=== PATIENT | male | born 1965 | race Caucasian/White ===

== ENCOUNTER 2023-10-04 08:38 | Inpatient (IN) | payer OTHER ==
[~2023-10-04] VITALS: Ht 188 cm; Wt 104.6 kg
[2023-10-04 09:31] LABS: Hemoglobin 8.8 g/dL (13.5-17.5); Mean Corpuscular HGB 26.6 pg (26.0-34.0); Mean Corpuscular HGB Conc 31.4 g/dL (31.5-36.5); Mean Corpuscular Volume 85 fL (80-100); Mean Platelet Volume 9.3 fL (9.1-12.4); NRBC ABSOLUTE 0.57 K/mm3 (0.00-0.02); NRBC Auto 3.8 /100 WBC (0.0-0.2); Platelet Count 232 K/mm3 (150-400); RDW Coefficient Variation 21.4 % (11.7-14.2); RDW Standard Deviation 65.5 fL (35.1-46.3); Red Blood Cell Count 3.31 M/mm3 (4.30-5.90); White Blood Cell Count 15.11 K/mm3 (4.00-11.30)
[2023-10-04 09:57] LABS: Albumin/Globulin Ratio 0.6 (0.8-1.8); Bilirubin, Total 0.7 mg/dL (0.1-1.0); Bun/Creatinine Ratio 18.6 (12.0-20.0); Calcium, Blood 8.6 mg/dL (8.5-10.1); Creatinine, Blood 0.92 mg/dL (0.60-1.20); Potassium, Blood 4.2 mmol/L (3.5-5.5)
[2023-10-04] MEDS ORDERED: BENAZEPRIL HCL40 M4 PO (10:40)
[2023-10-04] MEDS ORDERED: NEBIVOLOL HCL5 MG PO (10:40)
[2023-10-04] MEDS ORDERED: AMLODIPINE BESY10 MG PO (10:40)
[2023-10-04] MEDS ORDERED: ATOR10 PO (10:41)
[2023-10-04 10:53] LABS: BASOPHILS PERCENT MAN 2 % (0-2); EOSINOPHILS ABSOLUTE MAN 0.45 K/mm3 (0.00-0.68); EOSINOPHILS PERCENT MAN 3 % (0-6); LYMPHOCYTES PERCENT MAN 8 % (21-46); MONOCYTES ABSOLUTE MAN 0.75 K/mm3 (0.16-1.47); MONOCYTES PERCENT MAN 5 % (4-13); NEUTROPHILS ABSOLUTE MAN 12.08 K/mm3 (1.96-9.15); PLASMA CELLS PERCENT MAN 2 % (0-0); SEG NEUTROPHILS PERCENT MAN 80 % (41-73); TOTAL CELLS COUNTED 100
[2023-10-04 11:04] LABS: BASOPHILS ABSOLUTE AUTO 0.08 K/mm3 (0.00-0.23); BASOPHILS PERCENT AUTO 1 % (0-2); EOSINOPHILS ABSOLUTE AUTO 0.28 K/mm3 (0.00-0.68); EOSINOPHILS PERCENT AUTO 2 % (0-6)
[2023-10-04 11:12] LABS: IMMATURE GRAN ABSOLUTE AUTO 0.31 K/mm3 (0.00-0.10); IMMATURE GRAN PERCENT AUTO 2 % (0-1); LYMPHOCYTES ABSOLUTE AUTO 2.19 K/mm3 (0.84-5.20); LYMPHOCYTES PERCENT AUTO 15 % (21-46); MONOCYTES ABSOLUTE AUTO 1.34 K/mm3 (0.16-1.47); MONOCYTES PERCENT AUTO 9 % (4-13); NEUTROPHILS ABSOLUTE AUTO 10.87 K/mm3 (1.96-9.15); NEUTROPHILS PERCENT AUTO 72 % (41-73)
[2023-10-04 11:45] LABS: IMMATURE RETIC FRACTION 35.1 % (2.3-16.0); RETICULOCYTE ABSOLUTE 0.0733 M/mm3 (0.0200-0.1100); RETICULOCYTE COUNT PERCENT 2.2 % (0.50-2.50)
[2023-10-04 13:29] LABS: Percent Saturation 8.8 % (20.0-50.0)
[2023-10-04 17:52] VITALS: BP 159/91
--- NOTE | 2023-10-04 18:28 | NUR ---
ADMISSION NOTE: PATIENT ARRIVES TO ROOM AT 1745 FROM ED FOR DX'S OF NEW ONSET OF CHF. PATIENT A/OX4, ANSWER TO QUESTIONS APPROPRIATLEY, CALM, PLEASANT AND COOPERATIVE c CARE. PATIENT ORIENTATED TO ROOM AND CALL SYSTEM. MEDRIC, ADMISSION AND SKIN ASESSMENT c 2 RN VERIFIED COMPLETED. PATIENT DENIES CP/PRESSURE, SOB AND DIZZINESS. PATIENT ON TELE SR HR AT 95 BPM. PATIENT ON 2L O2 VIA NC, BASELINE RA. PATIENT ON REGULAR DIET. PATIENT HAS ECHO ORDER, AWAITING TO GET THE PROCEDURE DONE. PATIENT IS INDEPENDENT IN ROOM. PATIENT RECEIVED PO FERROUS SULFATE PER ORDER. PIV TO L WRIST SL. VITAL SIGNS REVIEWED. CALL LIGHT IN REACH.
[2023-10-04 20:09] VITALS: BP 120/64
[2023-10-05 02:42] VITALS: BP 129/86
--- NOTE | 2023-10-05 04:26 | NUR ---
SHIFT SUMMARY PT A&O X4, PLEASANT AND COOPERATIVE WITH CARE. CURRENTLY ON 2L VIA NC, SATS ABOVE 94%. PT CONTINENT OF BLADDER/BOWEL. TELEMETRY: SR W/PVC @ 73. STRICT I&O'S MAINTAINED. PT AWAITING ECHO PROCEDURE. DAUGHTER WHO IS AN ER NURSE CALLED TO CHECK ON PT. VITALS REVEIWED. NO ACUTE CHANGES THIS SHIFT. BED KEPT IN LOWEST POSITION IWTH CALL LIGHT WITHIN REACH. PT CALLS APPROPRAITELY FOR NEEDS. WILL CONTINUE TO MONITOR.
[2023-10-05 05:30] LABS: Hematocrit 27.7 % (37.0-53.0); Hemoglobin 8.6 g/dL (13.5-17.5); Mean Corpuscular HGB 26.6 pg (26.0-34.0); Mean Corpuscular Volume 86 fL (80-100); Mean Platelet Volume 9.8 fL (9.1-12.4); NRBC ABSOLUTE 0.53 K/mm3 (0.00-0.02); NRBC Auto 3.5 /100 WBC (0.0-0.2); Platelet Count 234 K/mm3 (150-400); RDW Coefficient Variation 21.5 % (11.7-14.2); Red Blood Cell Count 3.23 M/mm3 (4.30-5.90); White Blood Cell Count 15.15 K/mm3 (4.00-11.30)
[2023-10-05 06:10] LABS: Bun/Creatinine Ratio 17.5 (12.0-20.0); Calcium, Blood 8.4 mg/dL (8.5-10.1); Creatinine, Blood 1.03 mg/dL (0.60-1.20); Magnesium, Blood 2.4 mg/dL (1.6-2.4); Potassium, Blood 3.6 mmol/L (3.5-5.5)
[2023-10-05 07:26] VITALS: BP 130/74
[2023-10-05 12:06] LABS: Adenovirus Not Detected (NOT DETECT); Coronavirus 229E Not Detected (NOT DETECT); Coronavirus HKU1 Not Detected (NOT DETECT); Coronavirus NL63 Not Detected (NOT DETECT); Coronavirus OC43 Not Detected (NOT DETECT); SARS-Cov-2 (COVID-19), BioFire Not Detected (NOT DETECT)
[2023-10-05 12:07] LABS: Bordetella pertussis Not Detected (NOT DETECT); Chlamydophila pneumoniae Not Detected (NOT DETECT); Human Metapneumovirus Not Detected (NOT DETECT); Human Rhinovirus/Enterovirus Detected (NOT DETECT); Influenza A/2009-H1 Not Detected (NOT DETECT); Influenza A/H1 Not Detected (NOT DETECT); Influenza A/H3 Not Detected (NOT DETECT); Influenza B Not Detected (NOT DETECT); Mycoplasma pneumoniae Not Detected (NOT DETECT); Parainfluenza Virus 1 Not Detected (NOT DETECT); Parainfluenza Virus 2 Not Detected (NOT DETECT); Parainfluenza Virus 3 Not Detected (NOT DETECT); Parainfluenza Virus 4 Not Detected (NOT DETECT); Respiratory Syncytial Virus Not Detected (NOT DETECT)
[2023-10-05 14:42] VITALS: BP 128/76
--- NOTE | 2023-10-05 16:58 | NUR ---
SHIFT SUMMARY: PATIENT A/OX4, CALM, PLEASANT AND COOPERATIVE c CARE. PATIENT DENIES CP/PRESSURE, N/V, AND DIZZINESS. PATIENT ON TELE, SR HR IN THE 80'S BPM. PATIENT HAD ECHO DONE TODAY c RESULT; EF 55-60%. PATIENT REPORTS SMALL AMOUNT PRODUCTIVE COUGH, MEDICATED c PRN FOR COUGH c MINIMAL EFFECT. PATIENT PLACED ON DROPLET PRECAUTION D/T PCR RESULT POSITIVE FOR ENTERO/RHINO VIRUS. PATIENT RECEIVED PO/IV ABX AND SCHEDULED MEDS PER EMAR. PATIENT HAD SHOWER AND LINEN CHANGED TODAY. PATIENT IS CONTINENCE OF BLADDER AND HAS BEEN AMBULATING TO BATHROOM T/O SHIFT. PATIENT ON IV LASIX c 1,650 MLS TOTAL URINE OUTPUT THIS SHIFT. PATIENT PLACED ON RA AT AROUND 1000 c SPO2 RANGES 90-94% T/O SHIFT. PATIENT HAS NO COMPLAINTS OR DENIES NEW CONCERNED THIS SHIFT. PIV TO L WRIST SALINE LOCKED. CALL LIGHT IN REACH.
[2023-10-05 20:12] VITALS: BP 117/73
[2023-10-06 03:43] VITALS: BP 123/75
--- NOTE | 2023-10-06 04:50 | NUR ---
SHIFT SUMMARY PT A&O X4, CALM AND COOPERATIVE WITH CARE. PT DENIES ANY CP OR PRESSURE. TELEMETRY: SR @ 88. 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 PT CURRENTLY HAS A COUGH. PT DECLINED TO TAKE ANY PRN COUGH MEDICATIONS. CURRENTLY ON RA WITH SATS ABOVE 90%. PT IS CONTINENT OF BLADDER/BOWEL AND HAS BEEN AMBULATING T/O THE SHIFT. NO ACUTE CHANGES OVERNIGHT. TT DAUGHTER JOSEY OVER THE PHONE WHO IS AN ER NURSE IN [place]. DAUGHTER WAS DRIVING DOWN LAST NIGHT AND WILL BE IN TO SEE THE PT TODAY. PT CALLS APPROPRIATLY FOR NEEDS. WILL CONTINUE TO MONITOR. CALL LIGHT WITHIN REACH.
[2023-10-06 05:18] LABS: BASOPHILS ABSOLUTE AUTO 0.07 K/mm3 (0.00-0.23); BASOPHILS PERCENT AUTO 1 % (0-2); EOSINOPHILS ABSOLUTE AUTO 0.48 K/mm3 (0.00-0.68); EOSINOPHILS PERCENT AUTO 4 % (0-6); Hematocrit 28.1 % (37.0-53.0); Hemoglobin 8.8 g/dL (13.5-17.5); IMMATURE GRAN ABSOLUTE AUTO 0.25 K/mm3 (0.00-0.10); IMMATURE GRAN PERCENT AUTO 2 % (0-1); LYMPHOCYTES ABSOLUTE AUTO 2.72 K/mm3 (0.84-5.20); LYMPHOCYTES PERCENT AUTO 20 % (21-46); MONOCYTES ABSOLUTE AUTO 3.44 K/mm3 (0.16-1.47); MONOCYTES PERCENT AUTO 25 % (4-13); Mean Corpuscular HGB 26.7 pg (26.0-34.0); Mean Corpuscular HGB Conc 31.3 g/dL (31.5-36.5); Mean Corpuscular Volume 85 fL (80-100); Mean Platelet Volume 9.6 fL (9.1-12.4); NEUTROPHILS ABSOLUTE AUTO 6.66 K/mm3 (1.96-9.15); NEUTROPHILS PERCENT AUTO 49 % (41-73); NRBC ABSOLUTE 0.65 K/mm3 (0.00-0.02); NRBC Auto 4.8 /100 WBC (0.0-0.2); Platelet Count 246 K/mm3 (150-400); RDW Coefficient Variation 21.3 % (11.7-14.2); RDW Standard Deviation 65.6 fL (35.1-46.3); Red Blood Cell Count 3.29 M/mm3 (4.30-5.90); White Blood Cell Count 13.62 K/mm3 (4.00-11.30)
[2023-10-06 05:35] LABS: Bun/Creatinine Ratio 20.2 (12.0-20.0); Calcium, Blood 8.2 mg/dL (8.5-10.1); Creatinine, Blood 0.94 mg/dL (0.60-1.20); Potassium, Blood 3.2 mmol/L (3.5-5.5)
[2023-10-06 07:32] VITALS: BP 123/93
[2023-10-06 11:05] VITALS: BP 112/66
--- NOTE | 2023-10-06 11:23 | NUR ---
NOTE: RECEIVED A CALL FROM [facility] [employer] [facility] AT AROUND 1104. PER NURIS, PATIENT HAD 12 BEATS RUN OF VTACH. THIS RN ASSESS PATIENT; PATIENT LAYING IN BED CONVERSING c FAMILY AT BEDSIDE, DENIES CP/PRESSURE, SOB, DIZZINESS, DIAPHORESIS, VITALS TAKEN; BP 112/66, HR OF 78 BPM, O2 94% RA. NOTIFIED DR. PRITCHARD c THIS EVENTS. PER DR. PRITCHARD SHE WILL ORDER LAB DRAWM FOR K, MAG, CONTINUE TO MONITOR PATIENT AND TO GIVE HER A CALL BACK c THE LAB RESULT.
[2023-10-06 12:07] LABS: Magnesium, Blood 2.3 mg/dL (1.6-2.4); Potassium, Blood 3.8 mmol/L (3.5-5.5)
[2023-10-06 15:39] VITALS: BP 124/71
--- NOTE | 2023-10-06 17:24 | NUR ---
SHIFT SUMMARY: PATIENT A/OX4, PLEASANT AND COOPERATIVE c CARE. PATIENT USES CALL LIGHT APPROPRIATELY AND ABLE TO MAKE NEEDS KNOWN. PATIENT HAD OT EPISODE OF 12 BEATS RUN OF VTACH THIS AM, DR. PRITCHARD IS AWARE THIS ISSUE. PATIENT HAS NO EVENTS ON TELE AFTER THE EPISODE AND HAS BEEN CONSISTENT SR c OCCASIONAL PVC, HR IN THE 70'S BPM THIS SHIFT. PATIENT RECEIVED IV LASIX, CONTINENCE OF BLADDER c 2,150 MLS TOTAL URINE OUTPUT AND 1 UNMEASURED VOID THIS SHIFT. PATIENT RECEIVED IV ABX AND SCHEDULED MEDS PER EMAR. PATIENT STILL ON RA, USES FLUTTER VALVE FOR BREATHING EXCERCISE T/O THE DAY. PATIENT REPORTS IT REALLY HELPS AND ABLE TO COUGH SOME PLEGHM UP. PATIENT SCHEDULED TO HAVE SLEEP OX STUDY TONIGHT PER ORDER. PATIENT HAD SHOWER AND LINEN CHANGED TODAY. PATIENT FAMILY AT BEDSIDE OFF/ON T/O THE DAY, UPDATE GIVEN TO FAMILY REGARDING PATIENT CONDITION AND PLAN OF CARE. PATIENT AND FAMILY VERBALIZED UNDERSTANDING AND NO FURTHER QUESTIONS AT THIS TIME. VITAL SIGNS REVIEWED. PIV TO L WRIST SALINE LOCKED. CALL LIGHT IN REACH.
[2023-10-06 19:46] LABS: HAPTOGLOBIN 109 mg/dL (30-200)
[2023-10-06 20:14] VITALS: BP 116/67
[2023-10-07 05:20] VITALS: BP 130/67
[2023-10-07 06:34] LABS: Hematocrit 31.4 % (37.0-53.0); Hemoglobin 9.8 g/dL (13.5-17.5); Mean Corpuscular HGB 26.5 pg (26.0-34.0); Mean Corpuscular HGB Conc 31.2 g/dL (31.5-36.5); Mean Corpuscular Volume 85 fL (80-100); NRBC ABSOLUTE 0.68 K/mm3 (0.00-0.02); NRBC Auto 5.1 /100 WBC (0.0-0.2); Platelet Count 257 K/mm3 (150-400); RDW Coefficient Variation 21.2 % (11.7-14.2); RDW Standard Deviation 65.3 fL (35.1-46.3); White Blood Cell Count 13.36 K/mm3 (4.00-11.30)
[2023-10-07 06:57] LABS: Bun/Creatinine Ratio 16.5 (12.0-20.0); Calcium, Blood 8.5 mg/dL (8.5-10.1); Creatinine, Blood 0.97 mg/dL (0.60-1.20); Potassium, Blood 3.4 mmol/L (3.5-5.5)
[2023-10-07 07:47] LABS: BASOPHILS ABSOLUTE MAN 0.13 K/mm3 (0.00-0.23); BASOPHILS PERCENT MAN 1 % (0-2); EOSINOPHILS PERCENT MAN 3 % (0-6); LYMPHOCYTES % ATYPICAL MANUAL 5 % (0-0); LYMPHOCYTES ABSOLUTE MAN 2.53 K/mm3 (0.84-5.20); LYMPHOCYTES PERCENT MAN 14 % (21-46); MONOCYTES ABSOLUTE MAN 1.87 K/mm3 (0.16-1.47); MONOCYTES PERCENT MAN 14 % (4-13); NEUTROPHILS ABSOLUTE MAN 6.81 K/mm3 (1.96-9.15); PLASMA CELLS PERCENT MAN 12 % (0-0); SEG NEUTROPHILS PERCENT MAN 51 % (41-73); TOTAL CELLS COUNTED 100
--- NOTE | 2023-10-07 07:47 | NUR ---
SHIFT SUMMARY PT A&O X4, CALM AND COOPERATIVE WITH CARE. TELEMETRY: ST AT 113. PT DENIES ANY CHEST PAIN OR PRESSURE. PT DOES HAVE A COUGH AND HAS SOME BACK PAIN DUE TO THAT. PT REFUSED PRN COUGH MEDS OR PAIN MEDS. ELEVATED HOB. PT HAD A SLEEP STUDY LAST NIGHT. PT IS CURRENTLY ON REG DIET AND MAY BENEFIT FROM CARDIAC DIET. PASSED ON TO DAY SHIFT. BED IN LOWEST POSITION WITH CALL LIGHT WITHIN REACH.
[2023-10-07 08:23] VITALS: BP 129/70
[2023-10-07] MEDS ORDERED: FERSU300 PO (15:14)
[2023-10-07] MEDS ORDERED: POTCHL20ER PO (15:15)
[2023-10-07] MEDS ORDERED: GUAI600T33 PO (15:15)
[2023-10-07] MEDS ORDERED: PRED20 PO (15:16)
[2023-10-07] MEDS ORDERED: FURO40 PO (15:16)
[2023-10-07] MEDS ORDERED: AMOCLA500 PO (15:44)
--- NOTE | 2023-10-07 17:28 | NUR ---
PATIENT DISCHARGED FROM THE UNIT. IV REMOVED. MEDICATIONS FAXED TO [facility]. PATIENT LEFT VIA WHEEL CHAIR WITH FAMILY
== END 2023-10-07 18:28 | disposition home or self-care (01) | DRG 291 ==
LOC: ER 08:38 → MEDS 08:39 → ENPENDDIS 10-07 14:14 → MEDS 10-07 18:28
PROVIDERS: Emergency Medicine; Family Medicine; Nurse Practitioner Acute Care; Student in an Organized Health Care Education/Training Program; ADMIT Internal Medicine
PROC: 5A09357 Assistance with Respiratory Ventilation, Less than 24 Consecutive Hours, Continuous Positive Airway Pressure (ICD-10-PCS; principal; 2023-10-06)
DX: I11.0 Hypertensive heart disease with heart failure (principal); I50.33 Acute on chronic diastolic (congestive) heart failure; J96.01 Acute respiratory failure with hypoxia; J12.89 Other viral pneumonia; I47.20 Ventricular tachycardia, unspecified; Q23.1 Congenital insufficiency of aortic valve; J06.9 Acute upper respiratory infection, unspecified; B97.10 Unspecified enterovirus as the cause of diseases classified elsewhere; B97.89 Other viral agents as the cause of diseases classified elsewhere; D50.9 Iron deficiency anemia, unspecified; D63.8 Anemia in other chronic diseases classified elsewhere; E78.5 Hyperlipidemia, unspecified; G47.33 Obstructive sleep apnea (adult) (pediatric); I27.20 Pulmonary hypertension, unspecified; F17.220 Nicotine dependence, chewing tobacco, uncomplicated; E87.6 Hypokalemia; Z86.16 Personal history of COVID-19; Z11.52 Encounter for screening for COVID-19
CPT/HCPCS: 0202U; 36415; 71046; 71260; 74018; 80048; 80053; 82607; 82728; 82746; 83010; 83540; 83550; 83615; 83735; 83880; 84132; 84145; 84484; 85025; 85027; 85045; 86140; 93005; 93010; 93306; 94640; 94664; 94760; 96372; 96374-59; 96375; 96376; 99285-25; A9270; G0378; J0696; J1650; J1940; J7050; J7512; Q9967

== ENCOUNTER → 2023-10-31 | Outpatient (CLI) | payer OTHER ==
[~2023-10-31] MED LIST: AMLODIPINE BESY10 MG PO; AMOCLA500 PO; ATOR10 PO; BENAZEPRIL HCL40 M4 PO; FERSU300 PO; FURO40 PO; GUAI600T33 PO; NEBIVOLOL HCL5 MG PO; POTCHL20ER PO; PRED20 PO
[2023-10-31 10:19] LABS: BASOPHILS ABSOLUTE AUTO 0.06 K/mm3 (0.00-0.23); BASOPHILS PERCENT AUTO 1 % (0-2); EOSINOPHILS ABSOLUTE AUTO 0.33 K/mm3 (0.00-0.68); EOSINOPHILS PERCENT AUTO 4 % (0-6); Hemoglobin 8.7 g/dL (13.5-17.5); Mean Corpuscular HGB 25.5 pg (26.0-34.0); Mean Corpuscular Volume 85 fL (80-100); Mean Platelet Volume 9.1 fL (9.1-12.4); NRBC ABSOLUTE 0.33 K/mm3 (0.00-0.02); NRBC Auto 3.8 /100 WBC (0.0-0.2); Platelet Count 222 K/mm3 (150-400); RDW Coefficient Variation 22.7 % (11.7-14.2); RDW Standard Deviation 69.5 fL (35.1-46.3); Red Blood Cell Count 3.41 M/mm3 (4.30-5.90); White Blood Cell Count 8.75 K/mm3 (4.00-11.30)
[2023-10-31 10:21] LABS: IMMATURE GRAN ABSOLUTE AUTO 0.09 K/mm3 (0.00-0.10); IMMATURE GRAN PERCENT AUTO 1 % (0-1); LYMPHOCYTES ABSOLUTE AUTO 2.57 K/mm3 (0.84-5.20); LYMPHOCYTES PERCENT AUTO 29 % (21-46); MONOCYTES ABSOLUTE AUTO 0.99 K/mm3 (0.16-1.47); MONOCYTES PERCENT AUTO 11 % (4-13); NEUTROPHILS ABSOLUTE AUTO 4.71 K/mm3 (1.96-9.15); NEUTROPHILS PERCENT AUTO 54 % (41-73)
[2023-10-31 10:23] LABS: Bun/Creatinine Ratio 10.2 (12.0-20.0); Calcium, Blood 8.6 mg/dL (8.5-10.1); Creatinine, Blood 1.18 mg/dL (0.60-1.20); Potassium, Blood 3.9 mmol/L (3.5-5.5)
[2023-10-31 10:56] LABS: BAND PERCENT MAN 3 % (0-8); BASOPHILS ABSOLUTE MAN 0.08 K/mm3 (0.00-0.23); BASOPHILS PERCENT MAN 1 % (0-2); EOSINOPHILS ABSOLUTE MAN 0.78 K/mm3 (0.00-0.68); EOSINOPHILS PERCENT MAN 9 % (0-6); LYMPHOCYTES ABSOLUTE MAN 1.75 K/mm3 (0.84-5.20); LYMPHOCYTES PERCENT MAN 20 % (21-46); MONOCYTES ABSOLUTE MAN 1.05 K/mm3 (0.16-1.47); MONOCYTES PERCENT MAN 12 % (4-13); SEG NEUTROPHILS PERCENT MAN 53 % (41-73)
[2023-10-31 10:57] LABS: PLASMA CELL ABSOLUTE MAN 0.17 K/mm3 (0.00-0.00); PLASMA CELLS PERCENT MAN 2 % (0-0)
== END | disposition home or self-care (01) ==
LOC: LAB 10:14 → LAB SHORT 10:14
PROVIDERS: Physician Assistant Surgical
DX: R06.00 Dyspnea, unspecified (principal)
CPT/HCPCS: 80048; 83880; 85025

== ENCOUNTER → 2025-08-06 | Outpatient (CLI) | payer OTHER, MEDICARE | LOC: LAB 15:42 → LAB SHORT 15:42 | DX: J02.9 Acute pharyngitis, unspecified (principal) | CPT/HCPCS: 87081 ==